=== PATIENT | female | born 1970 | race Caucasian/White ===

== ENCOUNTER 2024-04-26 08:45 | Day surgery (SDC) | payer OTHER ==
[~2024-04-26] VITALS: Ht 172.7 cm; Wt 135.3 kg
[~2024-04-26 08:45] MED LIST: Lactated Ringer's 1,000 ML IV ONE; SULTRIDS PO
[2024-04-26] MEDS ORDERED: propofoL 50 ML IV ONE (09:09)
[2024-04-26] MEDS ORDERED: TRAZ150T57 PO (09:17)
[2024-04-26] MEDS ORDERED: VENLAFAXINE HC225 MG PO (09:17)
[2024-04-26] MEDS ORDERED: Lactated Ringer's 1,000 ML IV ONE (09:37)
[2024-04-26 10:48] VITALS: BP 122/85
== END 2024-04-26 10:45 | disposition home or self-care (01) ==
LOC: ORSCSDS 08:45
PROVIDERS: Internal Medicine Gastroenterology
PROC: 0DBE8ZX Excision of Large Intestine, Via Natural or Artificial Opening Endoscopic, Diagnostic (ICD-10-PCS; principal; 2024-04-26 10:00)
DX: R19.7 Diarrhea, unspecified (principal); Z80.0 Family history of malignant neoplasm of digestive organs; Z90.49 Acquired absence of other specified parts of digestive tract; E66.01 Morbid (severe) obesity due to excess calories; Z68.42 Body mass index [BMI] 45.0-49.9, adult; Z79.899 Other long term (current) drug therapy
CPT/HCPCS: 88305; J2704; J7120